=== PATIENT | female | born 1985 | race African-American/Black ===

== ENCOUNTER 2016-05-24 15:13 | Emergency (ER) | payer MEDICAID ==
[~2016-05-24] VITALS: Ht 165.1 cm; Wt 96.0 kg
[2016-05-24] MEDS ORDERED: SODIUM CHLORIDE 0.9% 1,000 ML IV ONE (15:26)
[2016-05-24] MEDS ORDERED: NALOXONE HCL 1 MG/ML 2ML VIAL IV ONE (15:30)
[2016-05-24] MEDS ORDERED: BACITRACIN ZINC OINT UDPKT TOP ONE (15:45)
[2016-05-24 16:02] LABS: BASOPHILS % 0.5 % (0.0-2.0); EOSINOPHILS % 1.4 % (0.0-5.0); HEMATOCRIT. 37.2 % (36.0-48.0); HEMOGLOBIN. 12.2 g/dL (12.0-16.0); LYMPHOCYTES % 29.7 % (20.0-50.0); MEAN CORPUSCULAR HEMOGLOBIN 28.6 pg (28.0-32.0); MEAN CORPUSCULAR HGB CONC 32.8 g/dL (31.0-37.0); MEAN CORPUSCULAR VOLUME 86.9 fL (81.0-99.0); MEAN PLATELET VOLUME 7.4 fl (7.4-10.4); MONOCYTES % 5.2 % (2.0-8.0); NEUTROPHILS % 63.2 % (40.0-76.0); PLATELET 269 x1000/uL (130-400); RED BLOOD CELL COUNT 4.28 mill/uL (4.2-5.4); RED CELL DISTRIBUTION WIDTH 15.6 % (11.6-14.6); WHITE BLOOD COUNT 9.3 x1000/uL (4.5-11.0)
[2016-05-24 16:06] LABS: CHLORIDE 107 mEq/L (98-107); INDEX HEMOLYSI 1 (1-3); INDEX ICTERIC 1 (1-4); INDEX LIPEMIC 1 (1-3)
[2016-05-24 16:08] LABS: AMMONIA < 10 uMol/L (<32)
[2016-05-24 16:09] LABS: ALBUMIN 3.2 g/dL (3.4-5.0); ANION GAP 13; CALCIUM 8.5 mg/dL (8.5-10.1); CARBON DIOXIDE 25 mEq/L (21-32); ETHANOL BLOOD 111 mg/dL; UREA NITROGEN BLOOD 15 mg/dL (7-21)
[2016-05-24 16:10] LABS: HCG SCREEN NEGATIVE
[2016-05-24 16:11] LABS: ACETAMINOPHEN < 2 ug/mL (10-30); ALANINE AMINOTRANSFERASE 29 IU/L (13-61)
[2016-05-24 16:13] LABS: CREATINE KINASE 179 IU/L (26-192); eGFR > 60 mL/min (>60)
[2016-05-24 16:16] LABS: NT PRO B-TYPE NATRIURETIC PEP 121 pg/mL (5-125); TROPONIN I < 0.02 ng/mL (0.00-0.04)
[2016-05-24 16:21] LABS: THYROID STIMULATING HORMONE 0.82 uIU/mL (0.36-3.74)
[2016-05-24 16:46] LABS: CLARITY URINE CLEAR (CLEAR); COLOR URINE YELLOW (YELLOW); GLUCOSE URINE NEGATIVE (NEGATIVE); KETONES URINE NEGATIVE (NEGATIVE); LEUKOCYTE ESTERASE URINE 1+ (NEGATIVE); NITRITE URINE POSITIVE (NEGATIVE); OCCULT BLOOD URINE NEGATIVE (NEGATIVE); PROTEIN URINE NEGATIVE (NEGATIVE); SPECIFIC GRAVITY URINE 1.013 (1.005-1.030); UROBILINOGEN URINE 0.2 E.U./dL (0.2-1.0)
[2016-05-24 16:57] LABS: *BARBITURATES SCREEN URINE NEGATIVE (NEGATIVE); *BENZODIAZEPINES SCREEN URINE NEGATIVE (NEGATIVE); CANNABINOID URINE SCREEN NEGATIVE (NEGATIVE); ECSTASY MDMA SCREEN URINE NEGATIVE (NEGATIVE); METHADONE URINE SCREEN NEGATIVE (NEGATIVE); OPIATES URINE SCREEN NEGATIVE (NEGATIVE)
[2016-05-24 17:00] LABS: *AMPHETAMINES SCREEN URINE PRESUMTIVE POSITIVE (NEGATIVE); *COCAINE SCREEN URINE PRESUMTIVE POSITIVE (NEGATIVE); PHENCYCLIDINE URINE SCREEN PRESUMTIVE POSITIVE (NEGATIVE)
[2016-05-24 17:08] LABS: BACTERIA URINE 2+; RBC URINE 0-2 /hpf (0-2); SQUAMOUS EPITHELIAL CELL URINE RARE /lpf (RARE/1+)
[2016-05-24] MEDS ORDERED: CEFTRIAXONE 1 G PREMIX 50 ML IV ONE (17:30)
[2016-05-25 11:49] VITALS: BP 162/72
== END 2016-05-25 11:53 | disposition home or self-care (01) ==
LOC: EDBD 15:13 → ER 15:13
DX: G92 Toxic encephalopathy (principal); T50.904A Poisoning by unspecified drugs, medicaments and biological substances, undetermined, initial encounter; S09.8XXA Other specified injuries of head, initial encounter; X58.XXXA Exposure to other specified factors, initial encounter; Y93.89 Activity, other specified; Y92.89 Other specified places as the place of occurrence of the external cause; Y99.8 Other external cause status
CPT/HCPCS: 36415; 70450; 71010; 80053; 80305; 80307; 80329; 81001; 82140; 82550; 83880; 84443; 84484; 84703; 85025; 93005; 96361; 96365; 99285; G0482; J0696; J7030; Z7610

== ENCOUNTER 2024-11-27 18:16 | Emergency (ER) | payer MEDICAID, OTHER ==
[~2024-11-27] VITALS: Ht 167.6 cm; Wt 70.0 kg
[2024-11-27 18:27] VITALS: O2SAT 99
[2024-11-27] MEDS: ACETAMINOPHEN 500MG TABLET PO ONE (21:53)
[2024-11-27 23:50] LABS: HCG SCREEN NEGATIVE
[2024-11-28] MEDS ORDERED: CLIN-116 MT (01:08)
[2024-11-28 01:43] VITALS: BP 155/86; PULSE 95; RESP 18; TEMP 36.7; O2SAT 99
== END 2024-11-28 01:45 | disposition home or self-care (01) ==
LOC: ER 18:16
DX: K04.7 Periapical abscess without sinus (principal); R51.9 Headache, unspecified; J45.909 Unspecified asthma, uncomplicated; F10.90 Alcohol use, unspecified, uncomplicated; F15.90 Other stimulant use, unspecified, uncomplicated; I67.82 Cerebral ischemia; Z87.59 Personal history of other complications of pregnancy, childbirth and the puerperium; Z88.0 Allergy status to penicillin
CPT/HCPCS: 70486; 73030; 84703; 99284